=== PATIENT | male | born 1975 | race Caucasian/White ===

== ENCOUNTER 2019-09-06 11:48 | Emergency (ER) | payer BC, SELFPAY ==
[2019-09-06 11:56] VITALS: BP 120/70; PULSE 82; RESP 16; TEMP 36.6; O2SAT 100
--- NOTE | 2019-09-06 11:57 | ED.URI ---
HPI - URI/Sore Throat General Chief Complaint: Upper Respiratory Infection Stated Complaint: COUGH/SORE THROAT/DIZZY/BODY ACHES Time Seen by Provider: 09/06/19 11:57 Source: patient Mode of arrival: ambulatory Limitations: no limitations History of Present Illness HPI Narrative: 44-year-old male presents for evaluation of symptoms that have been present since Wednesday evening. He is reporting rhinorrhea, body aches, chills, sweats, sore throat, mildly productive cough, headache, tactile fever, dizziness, fatigue. Decrease in appetite but normal drinking and urine output. He has used TheraFlu and ibuprofen for symptoms. Exposed to with similar symptoms. Reports he got a flu shot this season. Smokes half pack cigarettes per day for the past 25 years. Denies any wheezing, chest pain, shortness of breath, rash, confusion. Related Data Allergies Allergy/AdvReac Type Severity Reaction Status Date / Time No Known Allergies Allergy Verified 05/02/16 16:19 Review of Systems Review of Systems: Narrative: CONSTITUTIONAL: Reports fever, chills, sweats. EYES: Denies visual changes, redness, or discharge. ENT: Report rhinorrhea, congestion, sore throat. Denies otalgia. CARDIOVASCULAR: Denies chest pain, palpitations, or edema. RESPIRATORY: Denies dyspnea. Reports cough GASTROINTESTINAL: Denies abdominal pain, nausea, vomiting, or diarrhea. GENITOURINARY: Denies dysuria, hematuria, urinary frequency, malordous urine SKIN: Denies rash or itching. MUSCULOSKELETAL: Denies back pain, joint pain, swelling. Reports myalgias NEUROLOGIC: Denies headache, numbness, or weakness. All systems reviewed & are unremarkable except as noted in HPI and below PMFSH Family History Family History Mother Patient's mother is in good health Father Patient's father is in good health Sibling Patient's sister is in good health Patient's brother is in good health Social History Social History Smoking status: Light tobacco smoker Alcohol intake: current Comments At the time of my signature, I agree with nursing past medical, surgical, social and family history. There is no relevant family history pertinent to the presenting complaint. Exam Narrative: Exam Narrative: GENERAL: No distress, well appearing, well nourished, alert and calm HEAD: Normocephalic, atraumatic. No sinus tenderness noted EYES: Pupils equal, round reactive to light. Extraocular movements intact. Conjunctivae without redness or drainage. EARS: Tympanic membranes without erythema. TM landmarks intact with good light reflex. Ear canals without discharge. NOSE: Nares patent. Nasal turbinates inflamed, clear nasal discharge MOUTH: Mucous membranes moist. No lesions. No cyanosis. Dentition grossly normal. THROAT: Oropharynx without signs erythema, exudates or lesions. Tonsils not enlarged. NECK: Supple. No lymphadenopathy. RESPIRATORY: Airway patent. Chest clear to auscultation bilaterally. Breath sounds equal bilaterally. No retractions. CARDIOVASCULAR: Regular rate and rhythm. No murmurs, rubs, gallops, or clicks. Capillary refill <2 seconds. GASTROINTESTINAL: Soft, nontender, non-distended. Bowel sounds normoactive. No masses. No organomegaly. No CVA tenderness MUSCULOSKELETAL: Range of motion grossly normal in all four extremities. Strength grossly normal in all four extremities. No edema. No swelling SKIN: Color normal. Warm and dry. No rashes. Course Vital Signs Vital signs: Reviewed MDM - URI/Sore Throat MDM Narrative Medical decision making narrative: Patient is in no acute distress and is non toxic appearing. Vital signs stable. Influenza A positive. Educated about how to care for condition at home. For Tamiflu as patient symptoms have been present for 48 hours or less. Patient is appropriate for outpatient management, treatment, and follow up wi
== END 2019-09-06 12:27 | disposition home or self-care (01) ==
PROVIDERS: Emergency Provider Nurse Practitioner; PCP Internal Medicine
DX: J10.1 Influenza due to other identified influenza virus with other respiratory manifestations (principal); F17.210 Nicotine dependence, cigarettes, uncomplicated
CPT/HCPCS: 87804; 99213; G0463

== ENCOUNTER 2020-04-17 13:52 | Emergency (ER) | payer BC, SELFPAY ==
[2020-04-17 14:00] VITALS: BP 135/91; PULSE 99; RESP 20; TEMP 37.2; O2SAT 99
--- NOTE | 2020-04-17 14:03 | ED.UPPEXIN ---
HPI - Extremity Injury (Upper) General Chief Complaint: Extremity Injury, Upper Stated Complaint: L SHOULDER/ARM PAIN Source: patient and RN notes reviewed Limitations: no limitations History of Present Illness HPI narrative: The patient, is right-handed, presents with left shoulder pain. Patient states he is in shape, and had recent one-time, over use by heavy lifting. He complains of mild shoulder pain above the scapular spine somewhat like a trigger point. Symptoms are mild, unrelieved with chiropractor visit. No fever, neck pain, gait changes, there is some radiation down the deltoid Related Data Allergies Allergy/AdvReac Type Severity Reaction Status Date / Time No Known Allergies Allergy Verified 05/02/16 16:19 Review of Systems Review of Systems: Narrative: The patient has been informed that they may have pre-hypertension or Hypertension based on a BP reading in the department. I recommend that the patient call the primary care provider listed on their discharge instructions or a physician of their choice this week to arrange follow up for further evaluation of possible pre-hypertension or Hypertension General/Constitutional: No weight loss,fever Eyes: N0: Redness,discharge Ears/Nose/Throat: No: Epistaxis,ear discharge Respiratory: Denies: Hemoptysis Gastrointestinal: No Vomiting, Bleeding-rectal Skin: No Lumps, eruption Neurologic: No Focal Weakness,Sz Hematologic: Denies: Petechiae/Purpura Psychiatric: No: Suicida ideationl All Other Systems: Reviewed and Negative [facility] Past Medical History Medical History (Updated 04/17/20 @ 14:13 by Doc Townsend MD) ADD (attention deficit disorder) Anxiety Cervical radiculopathy Hyperlipidemia Hypertension Insomnia Pneumonia Social History Social History (Updated 11/30/19 @ 09:23 by Johanna Mendes CMA) Smoking packs per day: 1 Smoking cigarettes per day: 20.0 Smoking status: Current every day smoker Alcohol intake: current Comments At time of signature, agree with nursing past medical, surgical, social and family history. There is no relevant family history pertinent to the presenting complaint Exam Narrative: Exam Narrative: General Appearance: Well appearing, Conjunctiva clear Mouth/Throat: Normal appearing, Supple Respiratory: Airway patent, No respiratory distress MS-shoulder: Normal strength (mostly intact, unlimited flexion/extension, IR/ER), Tenderness (supraspinatus muscle, with mild decreased ROM), no swelling ; no drop arm test, negative Neer and Gregg test, negative crossarm Skin: Warm, Dry, Normal color Neurological: A&O x3, Normal affect Course Vital Signs Vital signs: Vital Signs Temperature 99 F 04/17/20 14:00 Pulse Rate 99 04/17/20 14:00 Respiratory Rate 20 04/17/20 14:00 Blood Pressure 135/91 H 04/17/20 14:00 Pulse Oximetry 99 04/17/20 14:00 Temperature 99 F 04/17/20 14:00 Pulse Rate 99 04/17/20 14:00 Respiratory Rate 20 04/17/20 14:00 Blood Pressure 135/91 H 04/17/20 14:00 Pulse Oximetry 99 04/17/20 14:00 Discharge Plan Discharge Clinical Impression: Sprain, supraspinatus Qualifiers: Encounter type: initial encounter Laterality: left Qualified Code(s): S46.812A - Strain of other muscles, fascia and tendons at shoulder and upper arm level, left arm, initial encounter Patient Disposition: Home, Self-Care Condition: Stable Prescriptions: New prednisone 20 mg tablet 60 mg PO DAILY Qty: 15 RF: 0 acetaminophen-codeine 300-30 mg tablet 1 tablet PO HS PRN (Reason: pain) Qty: 10 RF: 0 tramadol 50 mg tablet 50 mg PO TID PRN (Reason: pain) Qty: 15 RF: 1 No Action gabapentin 100 mg capsule 100 mg PO .HS Qty: 90 RF: 0 amlodipine 5 mg tablet 5 mg PO DAILY Qty: 30 RF: 0 Follow-up/Referrals: Kaushal Levy DO [Primary Care Provider] - Discharge Date/Time: 04/17/20 14:22
== END 2020-04-17 14:22 | disposition home or self-care (01) ==
PROVIDERS: Emergency Provider Emergency Medicine; PCP Internal Medicine
DX: S46.812A Strain of other muscles, fascia and tendons at shoulder and upper arm level, left arm, initial encounter (principal); X50.0XXA Overexertion from strenuous movement or load, initial encounter; E78.5 Hyperlipidemia, unspecified; I10 Essential (primary) hypertension; F17.210 Nicotine dependence, cigarettes, uncomplicated
CPT/HCPCS: 99213; G0463

== ENCOUNTER 2020-04-25 11:47 | Outpatient (CLI) | payer BC, SELFPAY ==
--- NOTE | ~2020-04-25 | XR_ITS ---
EXAMINATION: XR chest 2V EXAM DATE: 04/25/2020 12:08 INDICATION: Shortness of breath. TECHNIQUE: Frontal and lateral projections of the chest obtained and reviewed. Comparison is made to prior examination from 05/02/2016. FINDINGS: The lungs are clear. There are no pleural effusions. The cardiomediastinal silhouette i s within normal limits. There is no pneumothorax suspected. The bones and soft tissues are unremark able. IMPRESSION: Normal chest x-ray exam. Reviewed, dictated and finalized at location A. IMPRESSION: Normal chest x-ray exam.
--- NOTE | ~2020-04-25 | XR_ITS ---
EXAMINATION: XR shoulder LT min 2V EXAM DATE: 04/25/2020 12:08 INDICATION: No known recent injury provided at this time. Pain of the left shoulder. TECHNIQUE: The following left shoulder projections obtained: frontal projection with internal rotatio n, frontal projection with external rotation, Grashey, and axillary (4+ views). There is no prior st udy for comparison. FINDINGS: No evidence of left shoulder rotator cuff calcific tendinosis. Unremarkable left glenohu meral and acromioclavicular joints. There are no acute fractures or dislocations identified. There i s no subcutaneous gas. The soft tissue is unremarkable. There are no radiopaque foreign bodies. IMPRESSION: Normal x-ray exam. Reviewed, dictated and finalized at location A. IMPRESSION: Normal x-ray exam.
== END 2020-04-25 11:48 | disposition home or self-care (01) ==
LOC: ANHIMG 11:53
PROVIDERS: PCP Internal Medicine; Visit Provider Clinical Nurse Specialist
DX: R06.02 Shortness of breath (principal); M25.519 Pain in unspecified shoulder
CPT/HCPCS: 71046; 73030

== ENCOUNTER 2020-05-20 08:04 | Outpatient (CLI) | payer BC, SELFPAY ==
--- NOTE | ~2020-05-20 | MR_ITS ---
EXAMINATION: MR cervical spine wo con DATE: 05/20/2020 09:05 INDICATION: Cervical radiculopathy with neck pain and left shoulder and arm pain. Left hand numbness. TECHNIQUE: Magnetic resonance imaging (MRI) of the cervical spine was performed without intravenous c ontrast. Sequences included sagittal T2-weighted FSE, sagittal T2-weighted FS FSE, sagittal T1-weight ed FSE, axial MERGE and axial T2-weighted FSE. COMPARISON: 08/07/2016 FINDINGS: Straightening of the normal cervical lordosis. Vertebral body heights are normal. Normal marrow sign al. Progressive cephalad to caudal cervical disc height loss, minimal at C3-C4, mild at C4-C5, modera te at C5-C6 and moderate to severe at C6-C7. Cord signal intensity is normal. Cervical soft tissues a re unremarkable. The following disc levels are specifically discussed: C2-C3: The disc does not extend beyond the endplate margin. There is no uncovertebral joint osteoarth ritis. There is mild bilateral facet joint osteoarthritis. There is no neural foraminal stenosis. The re is no central canal stenosis. C3-C4: Annular fissure with central disc extrusion which measures 4 mm left to right and 3 mm AP, whi ch extends 4 mm cephalad and caudal to the level of the endplates and which indents the ventral surfa ce of the cord. There is mild left uncovertebral joint osteoarthritis. There is mild bilateral, left greater than right facet joint osteoarthritis. There is minimal left neural foraminal stenosis. There is mild central canal stenosis. C4-C5: Posterior disc osteophyte complex. There is mild left and moderate right uncovertebral joint o steoarthritis. There is mild bilateral facet joint osteoarthritis. There is moderate right and mild t o moderate left neural foraminal stenosis. There is mild central canal stenosis. C5-C6: Posterior disc osteophyte complex. There is severe bilateral uncovertebral joint osteoarthriti s. There is mild bilateral facet joint osteoarthritis. There is moderate to severe bilateral neural f oraminal stenosis. There is mild central canal stenosis. C6-C7: Posterior disc osteophyte complex. There is severe bilateral uncovertebral joint osteoarthriti s. There is mild bilateral facet joint osteoarthritis. There is moderate bilateral neural foraminal s tenosis. There is mild central canal stenosis. C7-T1: Disc is mildly bulging. There is mild bilateral uncovertebral joint osteoarthritis. There is m oderate left and mild to moderate right facet joint osteoarthritis. There is mild bilateral neural fo raminal stenosis. There is negligible central canal stenosis. IMPRESSION: 1. Moderate cervical spondylosis. Reviewed, dictated and finalized at location B.
== END 2020-05-20 08:05 ==
PROVIDERS: PCP Internal Medicine; Visit Provider Clinical Nurse Specialist
DX: M47.22 Other spondylosis with radiculopathy, cervical region (principal)
CPT/HCPCS: 72141

== ENCOUNTER → 2021-03-07 03:46 | Outpatient (CLI) | payer BC, SELFPAY ==
[2021-03-08 03:39] LABS: SARS-CoV-2 RNA PCR Negative
== END ==
PROVIDERS: PCP Internal Medicine; Visit Provider Clinical Nurse Specialist
DX: R05 Cough (principal); Z20.822 Contact with and (suspected) exposure to COVID-19
CPT/HCPCS: C9803; U0003; U0005

== ENCOUNTER 2021-06-24 13:24 | Outpatient (CLI) | payer BC, SELFPAY ==
[2021-06-24 14:01] LABS: Influenza Control Positive
== END 2021-06-24 13:25 | disposition home or self-care (01) ==
LOC: ANHLAB 13:26
PROVIDERS: PCP Internal Medicine; Visit Provider Nurse Practitioner
DX: R53.83 Other fatigue (principal)
CPT/HCPCS: 87804

== ENCOUNTER 2022-01-21 17:03 | Emergency (ER) | payer BC, SELFPAY ==
--- NOTE | 2022-01-21 17:06 | ECG_ITS ---
Measurements Intervals [place] Rate: 71 P: 48 NE: 135 QRS: 78 QRSD: 102 T: 58 QT: 364 QTc: 397 Interpretive Statements SINUS RHYTHM NO PREVIOUS ECG AVAILABLE FOR COMPARISON Electronically Signed On 01-21-2022 22:50:32 CDT by Nguyen Owens M.D.
[2022-01-21 17:10] VITALS: BP 142/85; PULSE 88; RESP 16; TEMP 36.7; O2SAT 100
[2022-01-21 17:24] LABS: Basophils Percent Auto 0.6 % (0.2-1.2); Eosinophils Absolute Auto 0.1 K/mm3 (0-0.3); Eosinophils Percent Auto 1.6 % (0-4.4); Hematocrit 41.6 % (42.0-52.0); Hemoglobin 14.3 g/dL (14.0-18.0); Immature Granulocyte Absolute 0.01 K/mm3 (0.00-0.031); Immature Granulocyte Percent A 0.2 % (0-0.5); Lymphocytes Absolute Auto 2.21 K/mm3 (0.9-3.2); Lymphocytes Percent Auto 34.3 % (18.3-44.2); Mean Corpuscular HGB Conc 34.4 g/dl (32-36); Mean Corpuscular Hemoglobin 33.3 pg (26-34); Mean Platelet Volume 9.2 fl (7.4-10.4); Monocytes Absolute Auto 0.4 K/mm3 (0.1-0.6); Monocytes Percent Auto 5.4 % (2.6-8.5); Neutrophils Absolute Auto 3.7 K/mm3 (1.3-6.7); Neutrophils Percent Auto 57.9 % (45.5-73.1); Platelet Count Result 287 k/mm3 (150-375); Red Blood Count 4.29 M/mm3 (4.6-6.20); Red Cell Distribution Width 12.1 % (11.5-14.5); White Blood Count 6.4 K/mm3 (4.5-10.0)
[2022-01-21 17:34] LABS: Alanine Aminotransferase 66 U/L (6-50); Albumin Level 4.8 g/dL (3.5-5.1); Alkaline Phosphatase 64 U/L (38-126); Anion Gap 8 mmol/L (8-16); Aspartate Amino Transferase 46 U/L (17-59); Bilirubin,Total 0.6 mg/dL (0.2-1.3); Blood Urea Nitrogen 12 mg/dL (9-20); Calcium 9.5 mg/dL (8.4-10.2); Carbon Dioxide 25 mmol/L (22-30); Chloride 105 mmol/L (98-107); Estimated CRCL calculation 82 ml/min; Estimated Glomerular Filt Rate > 60; Glucose 101 mg/dL (65-110); Potassium 3.5 mmol/L (3.4-5.0); Sodium 138 mmol/L (137-145)
--- NOTE | 2022-01-21 22:35 | PC.NURSE ---
no answer at triage
--- NOTE | 2022-01-21 23:08 | PC.NURSE ---
no answer at triage x3
== END 2022-01-21 22:35 | disposition left against medical advice (07) ==
PROVIDERS: Emergency Provider Emergency Medicine; PCP Internal Medicine
DX: R11.0 Nausea (principal)
CPT/HCPCS: 36415; 80053; 85025; 93005; 99199

== ENCOUNTER 2022-01-22 13:02 | Emergency (ER) | payer BC, SELFPAY ==
--- NOTE | ~2022-01-22 | XR_ITS ---
EXAMINATION: XR chest 2V DATE: 01/22/2022 13:30 INDICATION: Dizziness and nausea TECHNIQUE: Frontal and lateral views of the chest are obtained COMPARISON: 04/25/2020 FINDINGS: The lungs are free of acute opacities. No pleural effusion or pneumothorax. The cardiomedia stinal silhouette is normal. The visualized bones and soft tissues are unremarkable. IMPRESSION: 1. No acute cardiopulmonary abnormality. Reviewed, dictated and finalized at location F.
[2022-01-22 13:03] VITALS: BP 150/82; PULSE 88; RESP 16; TEMP 36.8; O2SAT 98
--- NOTE | 2022-01-22 13:04 | ECG_ITS ---
Measurements Intervals [place] Rate: 78 P: 71 TX: 138 QRS: 79 QRSD: 92 T: 60 QT: 348 QTc: 398 Interpretive Statements SINUS RHYTHM COMPARED TO ECG 01/21/2022 17:14:12 NO SIGNIFICANT CHANGES Electronically Signed On 01-22-2022 18:07:37 CDT by Nguyen Owens M.D.
[2022-01-22 13:20] LABS: Basophils Percent Auto 0.6 % (0.2-1.2); Eosinophils Absolute Auto 0.1 K/mm3 (0-0.3); Eosinophils Percent Auto 1.6 % (0-4.4); Hematocrit 40.4 % (42.0-52.0); Hemoglobin 13.7 g/dL (14.0-18.0); Immature Granulocyte Absolute 0.01 K/mm3 (0.00-0.031); Immature Granulocyte Percent A 0.1 % (0-0.5); Lymphocytes Absolute Auto 1.77 K/mm3 (0.9-3.2); Lymphocytes Percent Auto 26.1 % (18.3-44.2); Mean Corpuscular HGB Conc 33.9 g/dl (32-36); Mean Corpuscular Hemoglobin 33.2 pg (26-34); Mean Corpuscular Volume 97.8 fl (80-100); Mean Platelet Volume 9.3 fl (7.4-10.4); Monocytes Absolute Auto 0.5 K/mm3 (0.1-0.6); Monocytes Percent Auto 6.8 % (2.6-8.5); Neutrophils Absolute Auto 4.4 K/mm3 (1.3-6.7); Neutrophils Percent Auto 64.8 % (45.5-73.1); Platelet Count Result 278 k/mm3 (150-375); Red Blood Count 4.13 M/mm3 (4.6-6.20); Red Cell Distribution Width 12.1 % (11.5-14.5); White Blood Count 6.8 K/mm3 (4.5-10.0)
[2022-01-22 13:24] VITALS: PULSE 79
[2022-01-22 13:30] LABS: Alanine Aminotransferase 61 U/L (6-50); Albumin Level 4.5 g/dL (3.5-5.1); Alkaline Phosphatase 59 U/L (38-126); Anion Gap 7 mmol/L (8-16); Aspartate Amino Transferase 50 U/L (17-59); Bilirubin,Total 0.3 mg/dL (0.2-1.3); Blood Urea Nitrogen 14 mg/dL (9-20); Calcium 8.9 mg/dL (8.4-10.2); Carbon Dioxide 24 mmol/L (22-30); Chloride 107 mmol/L (98-107); Estimated CRCL calculation 82 ml/min; Estimated Glomerular Filt Rate > 60; Glucose 116 mg/dL (65-110); Lipase 107 U/L (23-300); Potassium 3.8 mmol/L (3.4-5.0); Sodium 138 mmol/L (137-145)
[2022-01-22 13:42] LABS: Troponin I < 0.012 ng/mL (0.000-0.034)
[2022-01-22 13:54] LABS: Prothrombin Time 12.6 Seconds (11.1-14.7)
[2022-01-22 13:55] LABS: Partial Thromboplastin Time 26.9 SECONDS (22.3-36.8)
[2022-01-22 14:42] VITALS: BP 129/58; PULSE 62; RESP 17; O2SAT 99
--- NOTE | 2022-01-22 14:50 | ED.CHESTPAIN ---
HPI - Chest Pain General Chief Complaint: Chest Pain Stated Complaint: nausea and dizziness Time Seen by Provider: 01/22/22 13:29 Source: patient History of Present Illness HPI narrative: Patient presents with not feeling well as well as nausea vomiting and left-sided chest pain. Ports that symptoms since approximately Wednesday that maybe a viral infection was monitoring symptoms currently were getting better reach out his primary care doctor and was referred to the ER for evaluation. Patient reports nausea and dry heaving he also reports diarrhea. Reports intermittent abdominal pain most noted on the right side since Wednesday he is also had left-sided chest pain intermittent. Pain is without clear aggravating or alleviating factors, no radiation. Denies any fevers denies any cough or congestion denies any known sick contacts. Patient came in yesterday to be evaluated for symptoms however his wait time was too long so he went home. He was not improved today so return to the ER. Related Data Allergies Allergy/AdvReac Type Severity Reaction Status Date / Time No Known Allergies Allergy Verified 01/22/22 13:06 Review of Systems Review of Systems: CONSTITUTIONAL: Denies fever, chills, or sweats. EYES: Denies visual changes, redness, or discharge. ENT: Denies rhinorrhea, congestion, sore throat, or otalgia. CARDIOVASCULAR: Chest pain RESPIRATORY: Shortness of breath GASTROINTESTINAL: Nausea and diarrhea and abdominal pain GENITOURINARY: Denies dysuria or hematuria. SKIN: Denies rash or itching. MUSCULOSKELETAL: Denies back pain, joint pain, or myalgia. NEUROLOGIC: Denies headache, numbness, dizziness, or weakness. PSYCHIATRIC: Denies anxiety or depression. All systems reviewed & are unremarkable except as noted in HPI and below PMFSH Past Medical History Medical History ADD (attention deficit disorder) Anxiety Cervical radiculopathy Hyperlipidemia Hypertension Insomnia Pneumonia Family History Family History Mother Patient's mother is in good health Father Patient's father is in good health Sibling Patient's sister is in good health Patient's brother is in good health Social History Social History Social History: Caffeine-coffee daily Smoking status: Current some day smoker Tobacco type: e-cigarettes/vaping Alcohol intake: current Alcohol use details: ocassionally Exam Narrative: GENERAL: Well-appearing, well-nourished, and in no acute distress. HEAD: Normocephalic, atraumatic. EYES: PERRLA and EOMI. ENT: Nares clear, no rhinorrhea or epistaxis. Mucous membranes moist. NECK: Supple. No masses. No JVD CHEST: Clear to auscultation. No respiratory distress. No wheezes rales or rhonchi HEART: Regular rate and rhythm. No murmur heard. Normal peripheral pulses. ABDOMEN: Soft, nontender, nondistended, normal active bowel sounds. EXTREMITIES: Normal range of motion. No edema. SKIN: Warm, dry, no rash. NEURO: No focal deficits. Alert and oriented x3. PSYCH: Normal mood and affect. Course Reevaluation(s) Reevaluation #1: Patient resting comfortably results and plan reviewed with patient. Patient is comfortable outpatient plan. Patient is offered further supportive therapies in the emergency room patient declined for like he manages symptoms at home. Date: 01/22/22 Time: 14:55 Vital Signs Vital signs: Vital Signs Temperature 36.8 C 01/22/22 13:03 Pulse Rate 88 01/22/22 13:03 Respiratory Rate 16 01/22/22 13:03 Blood Pressure 150/82 H 01/22/22 13:03 Pulse Oximetry 98 01/22/22 13:03 Temperature 36.8 C 01/22/22 13:03 Pulse Rate 60 01/22/22 15:11 Respiratory Rate 18 01/22/22 15:11 Blood Pressure 129/58 L 01/22/22 15:11 Pulse Oximetry 98 01/22/22 15:11 MDM - Chest Pain MDM Narrative Medical deci
[2022-01-22 15:11] VITALS: BP 129/58; PULSE 60; RESP 18; O2SAT 98
== END 2022-01-22 15:13 | disposition home or self-care (01) ==
PROVIDERS: Emergency Provider Emergency Medicine; PCP Internal Medicine
DX: R11.2 Nausea with vomiting, unspecified (principal); R19.7 Diarrhea, unspecified; R07.9 Chest pain, unspecified; E78.5 Hyperlipidemia, unspecified; I10 Essential (primary) hypertension; F98.8 Other specified behavioral and emotional disorders with onset usually occurring in childhood and adolescence; F41.9 Anxiety disorder, unspecified; F17.290 Nicotine dependence, other tobacco product, uncomplicated; Z87.01 Personal history of pneumonia (recurrent)
CPT/HCPCS: 36415; 71046; 80053; 83690; 84484; 85025; 85610; 85730; 93005; 99284

== ENCOUNTER 2022-03-25 15:11 | Emergency (ER) | payer BC, SELFPAY ==
[2022-03-25 15:12] VITALS: BP 145/84; PULSE 97; RESP 16; TEMP 36.6; O2SAT 99
--- NOTE | 2022-03-25 16:42 | ED.BACK ---
HPI - Back Pain/Injury General Chief Complaint: Back Pain/Injury Stated Complaint: low back pain shooting down RLE Time Seen by Provider: 03/25/22 16:41 Source: patient Mode of arrival: ambulatory Limitations: no limitations History of Present Illness HPI Narrative: The patient is a 46-year-old male with a history of sciatica presenting to the emergency department for evaluation of acute exacerbation of right lower back pain. Patient states that he was using a [employer] over the weekend, reports that he went over some very big waves, with associated mild lower back pain beginning over the weekend. Patient stated is worsened today as he began entering and exiting vehicles at work, now with significant pain that is causing him to have difficulty with ambulation. Patient reports aching, sharp, spasm-like pain in the right lumbar area that radiates down into his right buttock and down into his right leg. He denies any saddle anesthesia, weakness or numbness. He does report a tingling sensation in his right hand but states that he has struggled with that chronically, and also has history of cervical disc disease. Patient has been able to ambulate but does report significant pain with sitting and standing. Patient has not taken any medication for this. In the past used to follow-up at [facility] pain [facility]. Related Data Allergies Allergy/AdvReac Type Severity Reaction Status Date / Time No Known Allergies Allergy Verified 03/25/22 16:31 Review of Systems Review of Systems: CONSTITUTIONAL: Denies fever CARDIOVASCULAR: Denies chest pain RESPIRATORY: Denies cough or dyspnea. GASTROINTESTINAL: Denies abdominal pain SKIN: Denies rash MUSCULOSKELETAL: Reports right lower back pain NEUROLOGIC: Denies headache PMFSH Past Medical History Medical History ADD (attention deficit disorder) Anxiety Cervical radiculopathy Hyperlipidemia Hypertension Insomnia Pneumonia Family History Family History Mother Patient's mother is in good health Father Patient's father is in good health Sibling Patient's sister is in good health Patient's brother is in good health Social History Social History Social History: Caffeine-coffee daily Smoking status: Current some day smoker Tobacco type: e-cigarettes/vaping Alcohol intake: current Alcohol use details: ocassionally Exam Narrative: GENERAL: Awake, alert, conversant HEAD: Normocephalic, atraumatic. EYES: PERRLA and EOMI. ENT: Nares clear, no rhinorrhea or epistaxis. Mucous membranes moist. NECK: Supple. CHEST: No respiratory distress, breathing even and non labored HEART: Regular rate, sinus rhythm ABDOMEN:Non distended, non tender EXTREMITIES: Normal range of motion. No edema. Thorax: No midline thoracic or lumbar tenderness. There is midline right SI joint tenderness on exam that reproduces pain. SKIN: Warm, dry, no rash. NEURO:No focal deficits. Alert and oriented x3. Shoulder shrug intact. Strength 5/5 bilateral upper extremities. Strength 5/5 bilateral lower extremities. Reflexes 2+ patellar. EHL/FHL intact bilaterally. Intact distal sensation of the upper and lower extremities. Course Vital Signs Vital signs: Vital Signs Temperature 36.6 C 03/25/22 15:12 Pulse Rate 97 03/25/22 15:12 Respiratory Rate 16 03/25/22 15:12 Blood Pressure 145/84 H 03/25/22 15:12 Pulse Oximetry 99 03/25/22 15:12 Oxygen Delivery Room Air 03/25/22 15:12 Temperature 36.6 C 03/25/22 15:12 Pulse Rate 97 03/25/22 15:12 Respiratory Rate 16 03/25/22 15:12 Blood Pressure 145/84 H 03/25/22 15:12 Pulse Oximetry 99 03/25/22 15:12 Oxygen Delivery Room Air 03/25/22 15:12 MDM - Back Pain/Injury MDM Narrative Medical decision making narrative: Given History and Exam the patient appears to be at
[2022-03-25] MEDS: KETOROLAC (*BKC) 60 MG/2 ML VIAL 30 MG IM (17:14)
[2022-03-25] MEDS: diazePAM (*CRX) 5 MG TABLET PO (17:14)
[2022-03-25] MEDS: ACETAMINOPHEN 500 MG TABLET 1000 MG PO (17:14)
[2022-03-25 18:36] VITALS: BP 114/76; PULSE 69; RESP 16; O2SAT 99
== END 2022-03-25 18:39 | disposition home or self-care (01) ==
PROVIDERS: Emergency Provider Emergency Medicine; PCP Internal Medicine
DX: M54.16 Radiculopathy, lumbar region (principal); M54.41 Lumbago with sciatica, right side; E78.5 Hyperlipidemia, unspecified; I10 Essential (primary) hypertension; Z87.01 Personal history of pneumonia (recurrent); F17.290 Nicotine dependence, other tobacco product, uncomplicated
CPT/HCPCS: 96372; 99283; A9270; J1100; J1885

== ENCOUNTER 2023-04-12 08:56 | Emergency (ER) | payer BC, SELFPAY ==
[2023-04-12 09:05] VITALS: BP 135/75; PULSE 66; RESP 20; TEMP 37.1; O2SAT 100
--- NOTE | 2023-04-12 09:49 | ED.BACK ---
HPI - Back Pain/Injury General Chief Complaint: Back Pain/Injury Stated Complaint: Back pain radiating right arm Time Seen by Provider: 04/12/23 09:21 History of Present Illness HPI Narrative: This is a 48-year-old male, past history of hypertension hyperlipidemia, who presents emergency department complaining of right mid back pain, described as sharp for the past 2 days. He states this was present previously and is followed by pain management, though few days ago, he believes he strained his back while doing heavy lifting. Related Data Home Medications Medication Instructions Recorded Confirmed gabapentin 300 mg capsule 300 mg PO BID 03/24/23 03/24/23 Allergies Allergy/AdvReac Type Severity Reaction Status Date / Time No Known Allergies Allergy Verified 04/12/23 09:10 Review of Systems Review of Systems: CONSTITUTIONAL: Denies fever, chills, or sweats. CARDIOVASCULAR: Denies chest pain, palpitations, or edema. RESPIRATORY: Denies cough or dyspnea. GASTROINTESTINAL: Denies abdominal pain, nausea, vomiting, or diarrhea. GENITOURINARY: Denies dysuria or hematuria. SKIN: Denies rash or itching. MUSCULOSKELETAL: Right-sided thoracic back pain denies joint pain, or myalgia. NEUROLOGIC: Denies headache, numbness, dizziness, or weakness. PSYCHIATRIC: Denies anxiety or depression. [facility] Past Medical History Medical History ADD (attention deficit disorder) Anxiety Cervical radiculopathy Hyperlipidemia Hypertension Insomnia Pneumonia Family History Family History Mother Patient's mother is in good health Father Patient's father is in good health Sibling Patient's sister is in good health Patient's brother is in good health Social History Social History Social History: Caffeine-coffee daily Smoking status: Current some day smoker Tobacco type: e-cigarettes/vaping Alcohol intake: current Alcohol use details: ocassionally Lack of Transportation: No Lack of Food: Never True Current Housing: I Have Housing Concerned About Future Housing: No Difficulty Paying Gas/Electric Bills: No Difficulty Paying for Meds: No Currently Unemployed: No Education: High School Diploma/GED Difficulty w/ Childcare or Family Care: No Exam Narrative: GENERAL: Well-developed, well-nourished, and in no acute distress. HEAD: Normocephalic, atraumatic. EYES: PERRLA and EOMI. NECK: Supple. No adenopathy or masses. No carotid bruits or JVD BACK: Rhomboid muscle spasm on the right noted. No midline spine tenderness to palpation, no step-off or crepitus CHEST: Clear to auscultation. No respiratory distress. No wheezes rales or rhonchi HEART: Regular rate and rhythm. No murmur heard. Normal peripheral pulses. ABDOMEN: Soft, nontender, nondistended, normal active bowel sounds. NEURO: Alert and oriented x3. Moving all 4 limbs purposefully. PSYCH: Normal mood and affect. Course Course Emergency Course: 09:52 - The patient's exam is consistent with rhomboid muscle strain. Will discharge with pain medications and muscle relaxers. I advised the patient to follow-up with his primary care doctor. Discussed return and emergency precautions including signs/symptoms of neurovascular compromise. The patient voiced understanding and is comfortable with the plan. All questions answered to satisfaction. Vital Signs Vital signs: Vital Signs Temperature 98.7 F 04/12/23 09:05 Pulse Rate 66 04/12/23 09:05 Respiratory Rate 20 04/12/23 09:05 Blood Pressure 135/75 04/12/23 09:05 Pulse Oximetry 100 04/12/23 09:05 Oxygen Delivery Room Air 04/12/23 09:05 Temperature 98.7 F 04/12/23 09:05 Pulse Rate 76 04/12/23 10:07 Respiratory Rate 18 04/12/23 10:07 Blood Pressure 138/82 04/12/23 10:07 Pulse Oximetry
[2023-04-12] MEDS: KETOROLAC 30 MG/ML VIAL (*BKC) IM (09:59)
[2023-04-12] MEDS: methocarbamoL 500 MG TABLET PO (09:59)
[2023-04-12] MEDS: LIDOCAINE 5% PATCH 1 PATCH TRANSDERM (10:01)
[2023-04-12 10:07] VITALS: BP 138/82; PULSE 76; RESP 18; O2SAT 100
== END 2023-04-12 10:09 | disposition home or self-care (01) ==
PROVIDERS: Emergency Provider Preventive Medicine Aerospace Medicine; PCP Internal Medicine
DX: S29.012A Strain of muscle and tendon of back wall of thorax, initial encounter (principal); E78.5 Hyperlipidemia, unspecified; I10 Essential (primary) hypertension; Z87.01 Personal history of pneumonia (recurrent); F17.290 Nicotine dependence, other tobacco product, uncomplicated; X50.0XXA Overexertion from strenuous movement or load, initial encounter
CPT/HCPCS: 96372; 99283; A9270; J1885